=== PATIENT | male | born 1990 | race Caucasian/White ===

== ENCOUNTER 2021-03-27 06:10 | Inpatient (IN) | payer OTHER ==
[~2021-03-27] VITALS: Ht 11 cm; Wt 97.5 kg
[2021-03-27 11:00] VITALS: BP 142/63; PULSE 101; TEMP 98.6
--- NOTE | 2021-03-27 11:00 | NUR ---
PATIENT ADMITED INTO ROOM 342 FROM [facility] AND WAS SHIPPED HERE VIA AIR. PATIENT ARRIVED VERY SEDATED. NURSE/EMS REPORTED PATIENT WAS GIVEN SEVERAL DOSES OF ATIVAN FOR AGGITATION/DRUG WITHDRAWL SYMPOTOMS. PATIENT WAS POSITIVE FOR METH IN [facility] AND HAS KNOWN HX OF DRUG ABUSE. NOTED ELEVATED HR OF [id number], ALL OTHER VSS. PATIENT ARROUSED BRIEFLY DURING TRANSFER INTO BED. NOTED LEFT KNEE ABRASION AND WALKING BOOT TO RLE FRACTURE FROM FALL. LEFT FORARM AND RIGHT AC IV'S TO INT. SCD'S APPLIED TO LLE. HEAD TO TOE ASSESSMENT COMPLETE, SEE CHARTING. PATIENT SNORING. BED ALARM ON. CALL LIGHT IN REACH. NO FAMILY PRESENT AT THIS TIME.
--- NOTE | 2021-03-27 12:28 | NUR ---
AFTER CALLING OUT PATIENT'S NAME SEVERAL TIMES, LOUDLY, PATIENT ARROUSED ENOUGH TO SAY HIS MOM CAN BE HIS VISITOR. MOM NOW AT BEDSIDE.
--- NOTE | 2021-03-27 12:30 | NUR ---
HOSPITALIST NOTIFIED OF NO TELE BOXES LEFT IN THE HOSPITAL. HOSPITALIST PA WORKING ON DISCHARGES AND GETTING A TELE BOX FOR NEW ADMISSION.
[2021-03-27] MEDS ORDERED: LIORESAL 1010 MG/TAB PO (12:35)
[2021-03-27] MEDS ORDERED: NEURONTIN300 MG/CAP PO (12:35)
--- NOTE | 2021-03-27 13:05 | NUR ---
UA COLLECTED AND SENT TO LAB
[2021-03-27 13:07] LABS: COLLECTION METHOD CLEAN CATCH
[2021-03-27 13:16] LABS: MUCOUS Present /lpf; PH 6 (5-8); SQUAMOUS EPITHELIAL None Seen /hpf; URINE APPEARANCE Clear; URINE BACTERIA Rare /hpf; URINE BILIRUBIN Negative (NEGATIVE); URINE BLOOD 2+ (NEGATIVE); URINE COLOR Yellow; URINE GLUCOSE Negative (NEGATIVE); URINE KETONE Trace (NEGATIVE); URINE LEUKOCYTE ESTERASE Trace (NEGATIVE); URINE NITRATE Negative (NEGATIVE); URINE PROTEIN(semi-quant) 1+ (NEGATIVE); URINE UROBILINOGEN Negative (NEGATIVE)
[2021-03-27 13:44] LABS: BASO # 0.1 K/mm3 (0.0-0.2); BASO % 0.4 % (0.0-2.0); EOS # 0.1 K/mm3 (0.0-0.7); GRAN # 9.4 K/mm3 (1.4-6.5); GRAN % 81.6 % (42.2-75.2); HEMATOCRIT 43.4 % (42.0-52.0); LYMPH # 1.1 K/mm3 (1.2-3.4); LYMPH % 9.3 % (20.0-51.0); MEAN CELL VOLUME 93 fl (80.0-100.0); MEAN CORPUSCULAR HEMOGLOBIN 32 pg (27.0-31.0); MEAN CORPUSCULAR HGB CONC 35 g/dl (33.0-37.0); MEAN PLATELET VOLUME 10.8 fl (7.4-10.4); MONO # 0.9 K/mm3 (0.1-0.6); MONO % 7.4 % (1.7-9.3); PLATELET COUNT 277 K/mm3 (130-400); RED BLOOD COUNT 4.65 M/mm3 (4.20-5.60); REDCELL DISTRIBUTION WIDTH-CV 12.7 % (11.5-14.5)
[2021-03-27 14:08] LABS: ALBUMIN 3.5 gm/dL (3.5-5.0); BILIRUBIN,TOTAL 0.8 mg/dL (0.2-1.2); CALCIUM 8.9 mg/dL (8.4-10.2); CREATININE, serum 2.24 mg/dL (0.72-1.25); MAGNESIUM 2.3 mg/dL (1.6-2.6); POTASSIUM 4.2 mmol/L (3.5-4.5)
--- NOTE | 2021-03-27 14:10 | NUR ---
PATIENT IS NOW ON TELE. IV FLUIDS INFUSING AT 150CC VIA PUMP INTO RIGHT FORARM IV. ACCOUNTING FILE CLERK AT BEDSIDE. MOTHER ALSO AT BEDSIDE
[2021-03-27 16:00] VITALS: BP 118/55; PULSE 105; TEMP 98.6
[2021-03-27] MEDS ORDERED: LIORESAL20 MG PO (16:18)
--- NOTE | 2021-03-27 17:10 | NUR ---
PATIENT MORE AWAKE NOW AND C/O PAIN IN RLE. CALLED HOSPITALIST, SEE ORDERS. GAVE PRN ROXICODONE, ONE TAB.
[2021-03-27 17:19] LABS: CREATININE, serum 1.91 mg/dL (0.72-1.25)
[2021-03-27 19:09] LABS: FRACTIONAL EXCRETION OF NA+ 0.9 %
[2021-03-27 23:28] VITALS: BP 111/61; PULSE 99; TEMP 97.5
[2021-03-28] VITALS (7 sets, daily range): BP systolic 113–148; BP diastolic 59–91; PULSE 82–96; TEMP 97.5–98.5
--- NOTE | 2021-03-28 02:15 | NUR ---
ALERT AND OX4. SLEEPY FOR FIRST HALF OF SHIFT. WOKE LONG ENOUGH TO TAKE PILLS AND GIVE HEP THEN RIGHT BACK TO SLEEP. PAIN 5/10, TYL SCEDULED AND GIVEN. PRN OXY NOT DUE TILL LATER IN SHIFT. BOOT RT LOWER EXT AND EVLEVATED ON PILLOW. CALL LIGHT WI REACH. NEEDS MET.
--- NOTE | 2021-03-28 08:00 | NUR ---
PATIENT IS ORIENTED BUT DROWSY. VSS WITH TELE INPLACE. PATIENT C/O PAIN IN RLE RATED AT 4-5 HOWEVER IT IS TO EARLY FOR MORE PAIN MEDS. PATIENT REPORTS IT IS TOLERABLE. RLE IS ELEVATED AND CAM BOOT INPLACE. NOTED GOOD CMS TO RLE. BYERS TO DD WITH MOD AMOUNTS OF CLEAR YELLOW URINE. IV FLUIDS INFUSING INTO LEFT FORARM IV. RIGHT AC IV TO INT. HEAD TO TOE ASSESSMENT COMPLETE, SEE CHARTING. ORTHO CONSULTED. NO OTHER NEEDS AT THIS TIME. CALL LIGHT IN REACH.
[2021-03-28 08:17] LABS: BASO % 0.5 % (0.0-2.0); EOS # 0.2 K/mm3 (0.0-0.7); GRAN # 5.5 K/mm3 (1.4-6.5); HEMATOCRIT 41.1 % (42.0-52.0); HEMOGLOBIN 13.8 g/dl (13.5-18.0); LYMPH % 14.1 % (20.0-51.0); MEAN CELL VOLUME 97 fl (80.0-100.0); MEAN CORPUSCULAR HEMOGLOBIN 32 pg (27.0-31.0); MEAN CORPUSCULAR HGB CONC 34 g/dl (33.0-37.0); MEAN PLATELET VOLUME 11.5 fl (7.4-10.4); MONO # 0.6 K/mm3 (0.1-0.6); MONO % 8.3 % (1.7-9.3); PLATELET COUNT 233 K/mm3 (130-400); RED BLOOD COUNT 4.26 M/mm3 (4.20-5.60); REDCELL DISTRIBUTION WIDTH-CV 12.9 % (11.5-14.5)
--- NOTE | 2021-03-28 10:51 | NUR ---
Ciso met with patient and his mother, Eliana ([phone]) at the bedside. Patient's mother lives in [place] and works at a retirement. Patient was a/o and mom assisted with answering some questions. Patient has yet to be seen by ortho but he was independent with ADLs prior to this event with no DME's or home 02. 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 He lives in [place], [place] and his PCP is Dr. Reinier Champion in [place]. He is single and states that sometimes his brother stays with him. Notes reflect that patient is "self-pay" but patient's mother states patient has health ins that just went into effect 03/17/21 but they don't recall the name of it. Patient to contact employer today to find out and they will let this worker know. Patient does not have an MPOA and is not interested in one. *D/C Plan: anticipate patient will d/c home pending evaluations.
--- NOTE | 2021-03-28 10:58 | NUR ---
First visit from the plant and instrument engineer. No needs right now.
[2021-03-28 12:41] LABS: CALCIUM 9.2 mg/dL (8.4-10.2); POTASSIUM 4.4 mmol/L (3.4-5.0)
--- NOTE | 2021-03-28 23:11 | NUR ---
ALERT AND OX4. DENIES SOA, CHEST PAIN OR DIZZY. RATING PAIN 7/10 TO RT LOWER LEG. IN CAM BOOT EVELATED ON PILLOW. GOOD PULSES. RT AND AND LT FA IV, INT. PM MEDS GIVEN. PRN OXY. CALL LIGHT WI REACH. NEEDS MET.
[2021-03-29 03:19] VITALS: BP 150/81; PULSE 89; TEMP 98.3
[2021-03-29 07:54] VITALS: BP 129/90; PULSE 88; TEMP 97.9
[2021-03-29] MEDS ORDERED: OMNICEF 300MG300 MG PO (09:08)
[2021-03-29] MEDS ORDERED: NORCO 325 MG-51 TAB PO (09:11)
--- NOTE | 2021-03-29 10:44 | NUR ---
Patient sitting up in chair. His mother at bedside. Hospitalist team rounded. Consult PT/OT. Made them aware of consult. Patient was unsteady on his feet. Better with walker. Cam boot to rle. Student nurse assisted with wren removed. Patient voided times one in urinal. Patient tolerated breakfast, but stated his breakfast was cold. Will monitor.
--- NOTE | 2021-03-29 13:08 | NUR ---
Patient ready for discharge. Refusing to eat lunch here, wanting to leave. Patient going to stay with his mom. We reviewed all discharge education. Stressed the importance of ice & elevation and following up with ortho. PCP appt set up. We reviewed medication list & changes as well as medication safety & side effects. Patient wheeled out with all belogngings. His mom taking him home, they deny question or concerns.
--- NOTE | 2021-03-29 13:10 | NUR ---
int x2 dc
== END 2021-03-29 13:10 | disposition home or self-care (01) | DRG 872 ==
LOC: MEDICAL 06:10 → SURG 12:01
PROVIDERS: Physician Assistant; ADMIT Internal Medicine
DX: A41.9 Sepsis, unspecified organism (principal); N17.9 Acute kidney failure, unspecified; N39.0 Urinary tract infection, site not specified; J45.909 Unspecified asthma, uncomplicated; R65.20 Severe sepsis without septic shock; I10 Essential (primary) hypertension; F17.210 Nicotine dependence, cigarettes, uncomplicated; G62.9 Polyneuropathy, unspecified; S82.401A Unspecified fracture of shaft of right fibula, initial encounter for closed fracture; S82.61XA Displaced fracture of lateral malleolus of right fibula, initial encounter for closed fracture; R56.9 Unspecified convulsions
CPT/HCPCS: 99223-AI; 99232-AI; 99233-AI; 99239; J0696; J1644; J2543; J7030